=== PATIENT | male | born 1940 | race Two or more races ===

== ENCOUNTER 2021-09-14 06:54 | Inpatient (IN) | payer OTHER ==
[~2021-09-14] VITALS: Ht 170.2 cm; Wt 86.4 kg
[~2021-09-14 06:54] MED LIST: ASPI81CH43 PO; DOCU100C10 PO; FURO40TA4 PO; GLIP5TAB12 PO; LEVO25TA6 PO; MET25T PO; POTA-220 PO; SIMV-8 PO; WARF-196 PO
[2021-09-14 08:10] LABS: Basophils # (auto) 0 10 ^3/uL (0-0.2); Basophils % (auto) 0.3 % (0.0-2.0); Eosinophils # (auto) 0 10 ^3/uL (0-0.8); Eosinophils % (auto) 0.3 % (0.0-7.0); Hematocrit 33.6 % (41.0-53.0); Hemoglobin 11.4 g/dL (13.5-17.5); Lymphocytes # (auto) 0.4 10 ^3/uL (0.4-5.4); Lymphocytes % (auto) 7.4 % (10.0-50.0); Mean Corpuscular Hemoglobin 33.8 pg (28.0-32.0); Mean Corpuscular Volume 99.5 fL (80.0-100.0); Monocytes # (auto) 0.2 10 ^3/uL (0-1.3); Monocytes % (auto) 4.4 % (0.0-12.0); Neutrophils # (auto) 4.5 10 ^3/uL (1.6-8.6); Neutrophils % (auto) 87.6 % (37.0-80.0); Nucleated Red Blood Cells % 0.1 %; Red Blood Cells 3.37 10^6/uL (4.5-5.90); Red Cell Distribution Width 12.4 % (11.8-14.3); White Blood Cell 5.2 10^3/uL (4.4-10.8)
[2021-09-14 08:19] LABS: Albumin 3.5 g/dL (3.4-5.0); Calcium 8.8 mg/dL (8.5-10.1); Potassium 4.6 mmol/L (3.5-5.1)
[2021-09-14 08:24] LABS: BUN/Creatinine Ratio 21.5; Bilirubin, Total 0.8 mg/dL (0.2-1.0)
[2021-09-14 08:41] LABS: INR 2.96 (0.9-1.15); Partial Thromboplastin Time 42.4 sec (23.6-33.0)
[2021-09-14] MEDS ORDERED: IOHEXOL 350 MG/ML 100ML IJ ONE (08:55)
[2021-09-14] MEDS ORDERED: ONDANSETRON HCL 4 MG/2 ML VIAL IV PRN (09:30)
[2021-09-14] MEDS ORDERED: DOCUSATE SOD 100 MG CAP PO PRN (09:30)
[2021-09-14] MEDS ORDERED: DEXTROSE (50%) 50ML SYRG IV PRN (09:30)
[2021-09-14] MEDS ORDERED: MORPHINE SULFATE 4 MG/ML SYR/VIAL IV PRN (09:30)
[2021-09-14] MEDS: FAMOTIDINE (10MG/ML) 2ML VL IV SCH (10:00)
[2021-09-14] MEDS ORDERED: METOPROLOL TARTRATE 25 MG TAB PO SCH (10:00)
[2021-09-14] MEDS ORDERED: DOBUTamine 1000MCG/ML 250 ML IV ONE (10:15)
[2021-09-14] MEDS: ASPirin 81 mg TAB PO SCH (10:19)
[2021-09-14] MEDS ORDERED: NOREPINEPHRINE 8 MG/250ML KIT 250 ML IV ONE (10:23)
[2021-09-14] MEDS: NOREPINEPHRINE 8 MG/250ML KIT 250 ML IV SCH (10:32)
[2021-09-14] MEDS ORDERED: NITROGLYCERIN 0.4 MG SL TAB SL PRN (10:45)
[2021-09-14] MEDS ORDERED: MORPHINE SULFATE INJECTION 2 MG/ML SYRG IV PRN (10:45)
[2021-09-14] MEDS: InsuLIN REG 1unit/0.01ml Soln (100units/ml) SC SCH ×3 (11:52→21:56)
[2021-09-14] MEDS: ACCU-CHEK COMFORT CURVE STRIP VI SCH ×3 (11:53→21:56)
[2021-09-14] MEDS: SODIUM CHLOR 0.9% PF (SALINE LOCK) 10ML VIAL/SYR IV SCH ×2 (13:37→21:55)
[2021-09-14] MEDS: ACETAMINOPHEN 325 MG TAB PO PRN ×2 (15:26→23:45)
[2021-09-14] MEDS ORDERED: IBUPROFEN 100MG/5ML ORAL SUSP 100 MG/5 ML UD PO PRN (16:30)
[2021-09-14] MEDS ORDERED: IBUPROFEN 600 MG TAB PO ONE (16:45)
[2021-09-14 20:55] LABS: Urine Bacteria FEW /hpf (None Seen); Urine Blood 1+ /uL (Negative); Urine Specific Gravity 1.014 (1.001-1.035); Urine WBC 296 /hpf (0 - 3); Urine WBC Clumps PRESENT /hpf (None Seen)
[2021-09-14] MEDS: ATORVASTATIN 20 MG TAB PO SCH (21:54)
[2021-09-14] MEDS ORDERED: cefTRIAXone 1GM/50ML D5W 50 ML IV ONE (22:45)
[2021-09-14 23:42] LABS: Lactic Acid w/Reflex 8.5 mmol/L (0.4-2.0)
[2021-09-15] MEDS ORDERED: SODIUM CHLORIDE 0.9% 2,400 ML IV ONE
[2021-09-15] MEDS ORDERED: SODIUM CHLORIDE 0.9% 1,000 ML IV ONE (00:30)
[2021-09-15] MEDS: PIPERACILLIN-TAZOB 3.375GM 100 ML IV SCH ×4 (00:35→22:54)
[2021-09-15] MEDS: HYDROcodone-ACET 5/325MG TAB PO PRN (04:09)
[2021-09-15] MEDS: SODIUM CHLOR 0.9% PF (SALINE LOCK) 10ML VIAL/SYR IV SCH ×3 (06:00→22:00)
[2021-09-15] MEDS: LEVOTHYROXINE SODIUM 25 MCG TAB PO SCH (06:33)
[2021-09-15] MEDS: InsuLIN REG 1unit/0.01ml Soln (100units/ml) SC SCH ×4 (06:53→22:00)
[2021-09-15] MEDS: ACCU-CHEK COMFORT CURVE STRIP VI SCH ×4 (06:53→22:00)
[2021-09-15 07:12] LABS: Basophils # (auto) 0 10 ^3/uL (0-0.2); Basophils % (auto) 0.1 % (0.0-2.0); Eosinophils # (auto) 0 10 ^3/uL (0-0.8); Hematocrit 29.2 % (41.0-53.0); Lymphocytes # (auto) 0.2 10 ^3/uL (0.4-5.4); Mean Corpuscular Hemoglobin 34.2 pg (28.0-32.0); Mean Corpuscular Hgb Conc. 34.3 g/dL (32.0-36.0); Mean Corpuscular Volume 99.9 fL (80.0-100.0); Monocytes # (auto) 0.5 10 ^3/uL (0-1.3); Monocytes % (auto) 7.4 % (0.0-12.0); Neutrophils # (auto) 5.5 10 ^3/uL (1.6-8.6); Neutrophils % (auto) 89.5 % (37.0-80.0); Red Blood Cells 2.93 10^6/uL (4.5-5.90); Red Cell Distribution Width 12.9 % (11.8-14.3); White Blood Cell 6.1 10^3/uL (4.4-10.8)
[2021-09-15 07:18] LABS: BUN/Creatinine Ratio 18.8; Calcium 8.4 mg/dL (8.5-10.1); Potassium 4.1 mmol/L (3.5-5.1)
[2021-09-15 07:26] LABS: Bilirubin, Total 0.8 mg/dL (0.2-1.0); Total Protein 6.3 g/dL (6.4-8.2)
[2021-09-15] MEDS ORDERED: cefTRIAXone 1GM/50ML D5W 50 ML IV SCH (09:00)
[2021-09-15] MEDS: ASPirin 81 mg TAB PO SCH (10:20)
[2021-09-15] MEDS: FAMOTIDINE (10MG/ML) 2ML VL IV SCH (10:20)
[2021-09-15] MEDS ORDERED: TRAM50TA2 PO (11:02)
[2021-09-15] MEDS: NOREPINEPHRINE 8 MG/250ML KIT 250 ML IV SCH (15:13)
[2021-09-15] MEDS: SODIUM CHLORIDE 0.9% 1,000 ML IV SCH (16:00)
[2021-09-15] MEDS: DOBUTamine 1000MCG/ML 250 ML IV SCH (17:03)
[2021-09-15 18:00] VITALS: BP 106/48
[2021-09-15 18:09] VITALS: BP 106/48
[2021-09-15] MEDS: ACETAMINOPHEN 325 MG TAB PO PRN (18:20)
[2021-09-15 21:55] VITALS: BP 113/54
[2021-09-15] MEDS: ATORVASTATIN 20 MG TAB PO SCH (22:54)
[2021-09-16] MEDS: ACETAMINOPHEN 325 MG TAB PO PRN (04:12)
[2021-09-16 05:01] VITALS: BP 106/49
[2021-09-16] MEDS: SODIUM CHLORIDE 0.9% 1,000 ML IV SCH ×4 (05:34→23:20)
[2021-09-16] MEDS: SODIUM CHLOR 0.9% PF (SALINE LOCK) 10ML VIAL/SYR IV SCH ×3 (05:34→22:03)
[2021-09-16] MEDS: LEVOTHYROXINE SODIUM 25 MCG TAB PO SCH (05:52)
[2021-09-16] MEDS: InsuLIN REG 1unit/0.01ml Soln (100units/ml) SC SCH ×4 (05:53→22:15)
[2021-09-16] MEDS: ACCU-CHEK COMFORT CURVE STRIP VI SCH ×4 (05:54→22:04)
[2021-09-16] MEDS: PIPERACILLIN-TAZOB 3.375GM 100 ML IV SCH ×3 (05:54→22:04)
[2021-09-16 06:03] LABS: Basophils # (auto) 0 10 ^3/uL (0-0.2); Hemoglobin 9.1 g/dL (13.5-17.5); Lymphocytes # (auto) 0.4 10 ^3/uL (0.4-5.4); Mean Corpuscular Hemoglobin 35.3 pg (28.0-32.0); Monocytes # (auto) 0.4 10 ^3/uL (0-1.3)
[2021-09-16 06:04] LABS: Basophils % (auto) 0.1 % (0.0-2.0); Eosinophils # (auto) 0 10 ^3/uL (0-0.8); Eosinophils % (auto) 0.7 % (0.0-7.0); Hematocrit 25.3 % (41.0-53.0); Lymphocytes % (auto) 6.6 % (10.0-50.0); Mean Corpuscular Volume 98.1 fL (80.0-100.0); Monocytes % (auto) 7.4 % (0.0-12.0); Neutrophils # (auto) 4.5 10 ^3/uL (1.6-8.6); Neutrophils % (auto) 85.2 % (37.0-80.0); Red Blood Cells 2.58 10^6/uL (4.5-5.90); Red Cell Distribution Width 12.8 % (11.8-14.3); White Blood Cell 5.3 10^3/uL (4.4-10.8)
[2021-09-16 06:12] LABS: INR 2.5 (0.9-1.15); Partial Thromboplastin Time 54.4 sec (23.6-33.0)
[2021-09-16 06:28] LABS: Calcium 8.1 mg/dL (8.5-10.1); Magnesium 2.1 mg/dL (1.6-2.6); Potassium 3.5 mmol/L (3.5-5.1)
[2021-09-16 06:30] LABS: BUN/Creatinine Ratio 16.9
[2021-09-16 09:00] VITALS: BP 129/59
[2021-09-16] MEDS: FAMOTIDINE (10MG/ML) 2ML VL IV SCH (09:15)
[2021-09-16] MEDS: ASPirin 81 mg TAB PO SCH (09:15)
[2021-09-16 13:00] VITALS: BP 134/61
[2021-09-16 15:24] LABS: Protein, Urine 72.1 mg/dL (0.0-11.9)
[2021-09-16] MEDS: DOBUTamine 1000MCG/ML 250 ML IV SCH (15:25)
[2021-09-16 17:16] VITALS: BP 143/59
[2021-09-16 17:56] VITALS: BP 144/65
[2021-09-16 21:31] VITALS: BP 148/69
[2021-09-16] MEDS: ATORVASTATIN 20 MG TAB PO SCH (22:04)
[2021-09-17 05:17] VITALS: BP 155/68
[2021-09-17 05:56] LABS: Basophils # (auto) 0 10 ^3/uL (0-0.2); Eosinophils # (auto) 0.1 10 ^3/uL (0-0.8); Lymphocytes # (auto) 0.4 10 ^3/uL (0.4-5.4); Monocytes # (auto) 0.4 10 ^3/uL (0-1.3)
[2021-09-17 06:05] LABS: Basophils % (auto) 0.2 % (0.0-2.0); Eosinophils % (auto) 2.1 % (0.0-7.0); Hematocrit 26.1 % (41.0-53.0); Hemoglobin 9.4 g/dL (13.5-17.5); Lymphocytes % (auto) 8.7 % (10.0-50.0); Mean Corpuscular Hemoglobin 35.2 pg (28.0-32.0); Mean Corpuscular Volume 97.8 fL (80.0-100.0); Monocytes % (auto) 8.9 % (0.0-12.0); Neutrophils # (auto) 3.5 10 ^3/uL (1.6-8.6); Neutrophils % (auto) 80.1 % (37.0-80.0); Red Blood Cells 2.66 10^6/uL (4.5-5.90); Red Cell Distribution Width 12.7 % (11.8-14.3); White Blood Cell 4.3 10^3/uL (4.4-10.8)
[2021-09-17] MEDS: PIPERACILLIN-TAZOB 3.375GM 100 ML IV SCH ×3 (06:05→22:09)
[2021-09-17] MEDS: SODIUM CHLOR 0.9% PF (SALINE LOCK) 10ML VIAL/SYR IV SCH ×3 (06:05→22:09)
[2021-09-17 06:13] LABS: Albumin 2.6 g/dL (3.4-5.0); Magnesium 1.6 mg/dL (1.6-2.6); Potassium 3.5 mmol/L (3.5-5.1)
[2021-09-17 06:17] LABS: BUN/Creatinine Ratio 13.3; Bilirubin, Total 0.7 mg/dL (0.2-1.0); Total Protein 6.1 g/dL (6.4-8.2)
[2021-09-17] MEDS: LEVOTHYROXINE SODIUM 25 MCG TAB PO SCH (06:20)
[2021-09-17] MEDS: InsuLIN REG 1unit/0.01ml Soln (100units/ml) SC SCH ×4 (06:21→22:00)
[2021-09-17] MEDS: ACCU-CHEK COMFORT CURVE STRIP VI SCH ×4 (06:21→22:11)
[2021-09-17 08:45] VITALS: BP 149/73
[2021-09-17] MEDS: MAGNESIUM SULFATE 1GM/100ML 100 ML IV SCH ×2 (10:30→11:00)
[2021-09-17] MEDS: FAMOTIDINE (10MG/ML) 2ML VL IV SCH (10:30)
[2021-09-17] MEDS: ASPirin 81 mg TAB PO SCH (10:30)
[2021-09-17] MEDS ORDERED: CARVEDILOL 12.5 MG TAB PO ONE (10:45)
[2021-09-17 12:39] VITALS: BP 112/59
[2021-09-17 17:00] VITALS: BP 121/66
[2021-09-17 22:00] VITALS: BP 120/52
[2021-09-17] MEDS: ATORVASTATIN 20 MG TAB PO SCH (22:10)
[2021-09-17] MEDS: CARVEDILOL 12.5 MG TAB PO SCH (22:10)
[2021-09-17] MEDS: ACETAMINOPHEN 325 MG TAB PO PRN (22:10)
[2021-09-18 05:00] VITALS: BP 122/49
[2021-09-18 05:37] LABS: BUN/Creatinine Ratio 13.2; Calcium 8.5 mg/dL (8.5-10.1); Potassium 3.7 mmol/L (3.5-5.1)
[2021-09-18] MEDS: LEVOTHYROXINE SODIUM 25 MCG TAB PO SCH (06:31)
[2021-09-18] MEDS: InsuLIN REG 1unit/0.01ml Soln (100units/ml) SC SCH ×4 (06:31→21:31)
[2021-09-18] MEDS: SODIUM CHLOR 0.9% PF (SALINE LOCK) 10ML VIAL/SYR IV SCH ×3 (06:31→22:09)
[2021-09-18] MEDS: PIPERACILLIN-TAZOB 3.375GM 100 ML IV SCH ×3 (06:31→22:09)
[2021-09-18] MEDS: ACCU-CHEK COMFORT CURVE STRIP VI SCH ×4 (06:32→22:10)
[2021-09-18] MEDS ORDERED: ADENOSINE 77 MG in GIVE UN-DILUTED 0 ML IV STA (08:07)
[2021-09-18 09:00] VITALS: BP 134/60
[2021-09-18] MEDS: CARVEDILOL 12.5 MG TAB PO SCH ×2 (10:00→22:10)
[2021-09-18] MEDS: FAMOTIDINE (10MG/ML) 2ML VL IV SCH (10:00)
[2021-09-18] MEDS: ASPirin 81 mg TAB PO SCH (10:00)
[2021-09-18 13:00] VITALS: BP 133/57
[2021-09-18 13:26] VITALS: BP 124/64
[2021-09-18 17:00] VITALS: BP 141/70
[2021-09-18 22:00] VITALS: BP 137/54
[2021-09-18] MEDS: ATORVASTATIN 20 MG TAB PO SCH (22:10)
[2021-09-19 05:00] VITALS: BP 138/52
[2021-09-19] MEDS: PIPERACILLIN-TAZOB 3.375GM 100 ML IV SCH ×3 (05:17→22:16)
[2021-09-19] MEDS: HYDROcodone-ACET 5/325MG TAB PO PRN (05:17)
[2021-09-19] MEDS: SODIUM CHLOR 0.9% PF (SALINE LOCK) 10ML VIAL/SYR IV SCH ×3 (05:17→22:15)
[2021-09-19] MEDS: LEVOTHYROXINE SODIUM 25 MCG TAB PO SCH (05:56)
[2021-09-19] MEDS: InsuLIN REG 1unit/0.01ml Soln (100units/ml) SC SCH ×4 (05:56→22:39)
[2021-09-19] MEDS: ACCU-CHEK COMFORT CURVE STRIP VI SCH ×4 (05:56→22:17)
[2021-09-19 09:00] VITALS: BP 117/60
[2021-09-19] MEDS: CARVEDILOL 12.5 MG TAB PO SCH ×2 (10:00→22:16)
[2021-09-19] MEDS: FAMOTIDINE (10MG/ML) 2ML VL IV SCH (10:00)
[2021-09-19] MEDS: ASPirin 81 mg TAB PO SCH (10:00)
[2021-09-19 13:00] VITALS: BP 112/58
[2021-09-19 17:00] VITALS: BP 117/56
[2021-09-19 19:55] LABS: INR 1.44 (0.9-1.15)
[2021-09-19 22:00] VITALS: BP 156/66
[2021-09-19] MEDS: ATORVASTATIN 20 MG TAB PO SCH (22:17)
[2021-09-20] VITALS (9 sets, daily range): BP systolic 135–153; BP diastolic 48–68
[2021-09-20] MEDS: SODIUM CHLOR 0.9% PF (SALINE LOCK) 10ML VIAL/SYR IV SCH ×2 (06:25→13:20)
[2021-09-20] MEDS: PIPERACILLIN-TAZOB 3.375GM 100 ML IV SCH ×3 (06:26→16:28)
[2021-09-20] MEDS: ACCU-CHEK COMFORT CURVE STRIP VI SCH ×3 (06:26→17:02)
[2021-09-20] MEDS: LEVOTHYROXINE SODIUM 25 MCG TAB PO SCH (06:26)
[2021-09-20] MEDS: InsuLIN REG 1unit/0.01ml Soln (100units/ml) SC SCH ×3 (06:39→17:02)
[2021-09-20] MEDS ORDERED: IODIXANOL 320MG/ML 100ML BTL IV ONE (09:42)
[2021-09-20] MEDS ORDERED: LIDOCAINE 2%HCL (LOCAL ANESTH.) INJ 10ml MDV ONE (09:43)
[2021-09-20] MEDS ORDERED: fentaNYL CITRATE 100 MCG/2 ML VL ONE (09:54)
[2021-09-20] MEDS ORDERED: ANGIOMAX 250 MG VIAL IV ONE (09:54)
[2021-09-20] MEDS ORDERED: MIDAZOLAM HCL 2MG/2ML 2ml VIAL (1mg/ml) ONE (09:54)
[2021-09-20] MEDS ORDERED: VERAPAMIL 2.5MG/ML INJ 2ML VIAL IV ONE (09:54)
[2021-09-20] MEDS ORDERED: SODIUM CHL 0.9% 0 ML ONE (09:55)
[2021-09-20] MEDS ORDERED: HEPARIN SODIUM (PORCINE) 5000 UNITS/ML 1ML VIAL ONE (09:55)
[2021-09-20] MEDS: FAMOTIDINE (10MG/ML) 2ML VL IV SCH (13:18)
[2021-09-20] MEDS: CARVEDILOL 12.5 MG TAB PO SCH (13:19)
[2021-09-20] MEDS: ASPirin 81 mg TAB PO SCH (13:20)
[2021-09-20 13:33] LABS: Basophils # (auto) 0 10 ^3/uL (0-0.2); Basophils % (auto) 0.9 % (0.0-2.0); Eosinophils # (auto) 0.3 10 ^3/uL (0-0.8); Eosinophils % (auto) 7.6 % (0.0-7.0); Hematocrit 28.6 % (41.0-53.0); Hemoglobin 9.9 g/dL (13.5-17.5); Lymphocytes # (auto) 0.7 10 ^3/uL (0.4-5.4); Lymphocytes % (auto) 20.4 % (10.0-50.0); Mean Corpuscular Hemoglobin 33.7 pg (28.0-32.0); Mean Corpuscular Hgb Conc. 34.6 g/dL (32.0-36.0); Mean Corpuscular Volume 97.4 fL (80.0-100.0); Monocytes # (auto) 0.5 10 ^3/uL (0-1.3); Monocytes % (auto) 13.8 % (0.0-12.0); Neutrophils % (auto) 57.3 % (37.0-80.0); Nucleated Red Blood Cells % 0.1 %; Red Blood Cells 2.94 10^6/uL (4.5-5.90); Red Cell Distribution Width 12.8 % (11.8-14.3); White Blood Cell 3.4 10^3/uL (4.4-10.8)
[2021-09-20 14:28] LABS: INR 1.35 (0.9-1.15); Partial Thromboplastin Time 34.5 sec (23.6-33.0)
[2021-09-20] MEDS ORDERED: SULF400T11 PO (16:08)
== END 2021-09-20 18:40 | disposition home or self-care (01) | DRG 871 ==
LOC: EDBD 06:54 → ER 06:54 → OVERFLOW 10:35 → TELE-CENTR 09-15 18:03
PROVIDERS: ADMIT Nurse Practitioner Family; ATTEND Internal Medicine Geriatric Medicine
PROC: 4A023N7 Measurement of Cardiac Sampling and Pressure, Left Heart, Percutaneous Approach (ICD-10-PCS; principal; 2021-09-20)
PROC: B211YZZ Fluoroscopy of Multiple Coronary Arteries using Other Contrast (ICD-10-PCS; 2021-09-20)
PROC: B215YZZ Fluoroscopy of Left Heart using Other Contrast (ICD-10-PCS; 2021-09-20)
PROC: B218YZZ Fluoroscopy of Left Internal Mammary Bypass Graft using Other Contrast (ICD-10-PCS; 2021-09-20)
PROC: B213YZZ Fluoroscopy of Multiple Coronary Artery Bypass Grafts using Other Contrast (ICD-10-PCS; 2021-09-20)
DX: A41.51 Sepsis due to Escherichia coli [E. coli] (principal); G93.41 Metabolic encephalopathy; R65.21 Severe sepsis with septic shock; I50.43 Acute on chronic combined systolic (congestive) and diastolic (congestive) heart failure; N39.0 Urinary tract infection, site not specified; I42.9 Cardiomyopathy, unspecified; I13.0 Hypertensive heart and chronic kidney disease with heart failure and stage 1 through stage 4 chronic kidney disease, or unspecified chronic kidney disease; D68.9 Coagulation defect, unspecified; N17.9 Acute kidney failure, unspecified; D69.6 Thrombocytopenia, unspecified; E11.65 Type 2 diabetes mellitus with hyperglycemia; E11.22 Type 2 diabetes mellitus with diabetic chronic kidney disease; E78.5 Hyperlipidemia, unspecified; D63.1 Anemia in chronic kidney disease; E83.42 Hypomagnesemia; Z20.822 Contact with and (suspected) exposure to COVID-19; I25.10 Atherosclerotic heart disease of native coronary artery without angina pectoris; I48.91 Unspecified atrial fibrillation; N18.9 Chronic kidney disease, unspecified; Z87.891 Personal history of nicotine dependence; Z95.1 Presence of aortocoronary bypass graft; Z79.01 Long term (current) use of anticoagulants; N40.1 Benign prostatic hyperplasia with lower urinary tract symptoms
CPT/HCPCS: 36415; 70450; 71045; 74176; 76775; 78452; 78582; 80048; 80053; 80061; 81001; 82306; 82570; 82962; 83036; 83605; 83735; 83880; 83970; 84100; 84154; 84156; 84300; 84443; 84484; 85025; 85379; 85610; 85730; 86141; 87040; 87077; 87086; 87186; 87426; 93005; 93017; 93306; 93886; 93925; 96361; 96365; 97110; 97116; 97163; 97530; 99152; 99153; G0378; J0153; J0696; J1815; J2001; J2250; J2405; J2543; J3490; Q9967